=== PATIENT | female | born 1995 | race Caucasian/White ===

== ENCOUNTER 2018-03-27 03:55 | Inpatient (IN) | payer SELFPAY ==
[2018-03-27] MEDS ORDERED: Lidocaine 1% 50 ML MDV INJECT PRN (08:24)
[2018-03-27] MEDS ORDERED: Nalbuphine 10 MG/1 ML Vial IVPUSH PRN (08:24)
[2018-03-27] MEDS ORDERED: Butorphanol 1 MG/ML SDV IVPUSH PRN (08:24)
[2018-03-27] MEDS ORDERED: Misoprostol 200 MCG Tab PO PRN (08:24)
[2018-03-27] MEDS ORDERED: Tranexamic Acid 1,000 MG in Sodium Chloride 0.9% 100 ML IV PRN (08:24)
[2018-03-27] MEDS ORDERED: Methylergonovine 0.2 MG/1 ML Amp IM PRN (08:24)
[2018-03-27] MEDS ORDERED: Sodium Chloride 0.9% 2.5 ML Syringe FLUSH PRN (08:24)
[2018-03-27] MEDS ORDERED: Sodium Chloride 0.9% 10 ML Syringe FLUSH PRN (08:24)
[2018-03-27] MEDS ORDERED: Water For Irrigation,Sterile 1,000 ML Container IRR PRN (08:24)
[2018-03-27] MEDS ORDERED: Carboprost Tromethamine 250 MCG/1 ML Amp IM PRN (08:24)
[2018-03-27] MEDS ORDERED: Lactated Ringers 1,000 ML IV SCH (08:30)
[2018-03-27] MEDS ORDERED: Oxytocin/0.9 % Sodium Chloride 30 UNIT/500 ML BAG IV SCH (08:30)
--- NOTE | 2018-03-27 09:41 | PCM.LDHP ---
L&D History of Present Illness - General Date of Service: 03/27/18 Admit Problem/Dx: Patient Status Order with Admit Dx/Problem 03/27/18 04:07 Patient Status [ADT] Routine 03/27/18 08:24 Patient Status [ADT] Routine Admission Diagnosis/Problem Admission Diagnosis/Problem 03/27/18 09:35 22 yo due 03/19/18, 41 1/7 weeks, A+, Rubella Immune, GBS negative, admit for labor Source of Information: Patient History Limitations: Reports: No Limitations - History of Present Illness Timing/Duration: Reports: minutes: Location, : Reports: Abdomen Quality: Reports: Sharp, Stabbing Severity: Severe Improves with: Reports: None Worsens with: Reports: None Associated Symptoms: Reports: N - Related Data Allergies/Adverse Reactions: Allergies Allergy/AdvReac Type Severity Reaction Status Date / Time No Known Allergies Allergy Verified 03/27/18 08:23 Past Medical History [employer] History: Reports: Spontaneous - Past Surgical History HEENT Surgical History: Reports: Other (See Below) Other HEENT Surgeries/Procedures: tubes placed at 6 years old Social & Family History - Family History Family Medical History: Noncontributory H&P Review of Systems - Review of Systems: Review Of Systems: See Below General: Reports: No Symptoms HEENT: Reports: No Symptoms Pulmonary: Reports: No Symptoms Cardiovascular: Reports: No Symptoms Gastrointestinal: Reports: No Symptoms Genitourinary: Reports: No Symptoms Musculoskeletal: Reports: No Symptoms Skin: Reports: No Symptoms Psychiatric: Reports: No Symptoms Neurological: Reports: No Symptoms Hematologic/Lymphatic: Reports: No Symptoms Immunologic: Reports: No Symptoms L&D Exam - Exam Exam: See Below - Vital Signs Weight: 74.389 kg - OB Specific Contraction Intensity: Strong Movement: Active Heart Tones: Present Presentation: Vertex - Valiente Score Valiente Score Cervix Position: Midposition Valiente Score Consistency: Soft [place] Score Effacement: >80% [place] Score Dilation: > 5 cm [place] Score Infant's Station: -2 [place] Score Total: 10 - Exam General: Alert, Oriented, Cooperative HEENT: Hearing Intact Lungs: Normal Respiratory Effort Rectal Exam: Deferred Genitourinary: Deferred, Cervical dilitation Back Exam: Full Range of Motion Extremities: Normal Range of Motion Skin: Warm, Dry, Intact Neurological: Cranial Nerves Intact, Reflexes Equal Bilateral, Strength Equal Bilateral, Normal Gait, Normal Speech, Normal Tone, Sensation Intact Psychiatric: Alert, Normal Affect, Normal Mood - Patient Data Lab Results Last 24 hrs: Laboratory Results - last 24 hr 03/27/18 Range/Units 08:45 WBC 11.71 H (4.0-11.0) K/uL RBC 4.37 (4.30-5.90) M/uL Hgb 12.5 (12.0-16.0) g/dL Hct 36.2 (36.0-46.0) % MCV 82.8 (80.0-98.0) fL MCH 28.6 (27.0-32.0) pg MCHC 34.5 (31.0-37.0) g/dL RDW Std Deviation 39.3 (28.0-62.0) fl RDW Coeff of [place] 13 (11.0-15.0) % Plt Count 229 (150-400) K/uL MPV 11.40 (7.40-12.00) fL Nucleated RBC % 0.0 /100WBC Nucleated RBCs # 0 K/uL Result Diagrams: 03/27/18 08:45 - Problem List (1) Supervision of normal IUP (intrauterine ) in primigravida SNOMED Code(s): 96042033, 612187539, 943824580, 570744150 ICD Code: Z34.00 - ENCNTR FOR SUPRVSN OF NORMAL FIRST , UNSP TRIMESTER Status: Acute Priority: High Current Visit: Yes Qualifiers: Trimester: third trimester Qualified Code(s): Z34.03 - Encounter for supervision of normal first , third trimester Problem List Initiated/Reviewed/Updated: Yes Orders Last 24hrs: Active Orders 24 hr Category Date Time Status Patient Status [ADT] Routine ADT 03/27/18 08:24 Active Heart Tones [RC] CONTINUOUS Care 03/27/18 08:24 Active Non Stress Test [RC] PER UNIT ROUTINE Care 03/27/18 04:07 Active Non Stress Test [RC] PER UNIT ROUTINE Care 03/27/18 08:24 Active May Shower [RC] ASDIRECTED Care 03/27/18 08:24 Active Notify Provider [RC] PRN Care 03/27/18 08:24 Active Up ad Ashley [RC] ASDIRECTED Care 03/27/18 04:07 Active Up ad Ashley [RC] ASDIRECTED Care 03/27/18 08:24 Active Vaginal Exam [RC] Click to Edit Care 03/27/18 04:07 Active Vaginal Exam [RC] PRN Care 03/27/18 08:24 Active Vital Signs [RC] PER UNIT ROUTINE Care 03/27/18 04:07 Active Vital Signs [RC] PER UNIT ROUTINE Care 03/27/18 08:24 Active Regular Diet [DIET] Diet 03/27/18 Breakfast Active TYPE AND SCREEN [BBK] Routine Lab 03/27/18 08:45 Received Butorphanol [Stadol] Med 03/27/18 08:24 Active 1 mg IVPUSH Q1H PRN Carboprost Tromethamine [Hemabate DS] Med 03/27/18 08:24 Active 250 mcg IM ASDIRECTED PRN Lactated Ringers [Ringers, Lactated] 1,000 ml Med 03/27/18 08:30 Active IV ASDIRECTED Lidocaine 1% [Xylocaine 1%] Med 03/27/18 08:24 Active 50 ml INJECT ONETIME PRN Methylergonovine [Methergine] Med 03/27/18 08:24 Active 0.2 mg IM ASDIRECTED PRN Nalbuphine [Nubain] Med 03/27/18 08:24 Active 10 mg IVPUSH Q1H PRN Oxytocin/0.9 % Sodium Chloride [Oxytocin 30 Unit/500 ML Med 03/27/18 08:30 Active -NS] 30 unit in 500 ml IV .ONCE Sodium Chloride 0.9% [Saline Flush] Med 03/27/18 08:24 Active 10 ml FLUSH ASDIRECTED PRN Sodium Chloride 0.9% [Saline Flush] Med 03/27/18 08:24 Active 2.5 ml FLUSH ASDIRECTED PRN Tranexamic Acid [Cyklokapron] 1,000 mg Med 03/27/18 08:24 Active Sodium Chloride 0.9% [Normal Saline] 100 ml IV ONETIME Water For Irrigation,Sterile [Sterile Water for Med 03/27/18 08:24 Active Irrigation] 1,000 ml IRR ASDIRECTED PRN miSOPROStol [Cytotec] Med 03/27/18 08:24 Active 200 mcg PO ONETIME PRN Scalp Electrode [WOMSER] Per Unit Routine Oth 03/27/18 08:24 Ordered Peripheral IV Insertion Adult [OM.PC] Routine Oth 03/27/18 08:24 Ordered Resuscitation Status Routine Resus Stat 03/27/18 08:24 Ordered Medication Orders Butorphanol Tartrate (Stadol) 1 mg IVPUSH Q1H PRN PRN Reason: Pain Carboprost Tromethamine (Hemabate Ds) 250 mcg IM ASDIRECTED PRN PRN Reason: Post Hemorrhage Tranexamic Acid 1,000 mg/ (Sodium Chloride) 110 mls @ 660 mls/hr IV ONETIME PRN PRN Reason: Bleeding Lactated Ringer's (Ringers, Lactated) 1,000 mls @ 150 mls/hr IV ASDIRECTED MAX Oxytocin/Sodium Chloride (Oxytocin 30 Unit/500 Ml-Ns) 30 unit in 500 mls @ 500 mls/hr IV .ONCE MAX Lidocaine HCl (Xylocaine 1%) 50 ml INJECT ONETIME PRN PRN Reason: Laceration repair Methylergonovine Maleate (Methergine) 0.2 mg IM ASDIRECTED PRN PRN Reason: Post Hemorrhage Misoprostol (Cytotec) 200 mcg PO ONETIME PRN PRN Reason: Post Hemorrhage Nalbuphine HCl (Nubain) 10 mg IVPUSH Q1H PRN PRN Reason: Pain (severe 7-10) Sodium Chloride (Saline Flush) 10 ml FLUSH ASDIRECTED PRN PRN Reason: Keep Vein Open Sodium Chloride (Saline Flush) 2.5 ml FLUSH ASDIRECTED PRN PRN Reason: Keep Vein Open Sterile Water (Sterile Water For Irrigation) 1,000 ml IRR ASDIRECTED PRN PRN Reason: delivery Assessment/Plan Comment:: Labor: A: 22 yo due 03/19/18, 41 1/7 weeks, A+, Rubella Immune, GBS negative, admit for labor P: Admit, limited interventions per patient, anticipate ASPEN, Dr. Menezes updated
[2018-03-27] MEDS ORDERED: Witch Hazel Medicated Pads 40/Jar TOP PRN (18:32)
[2018-03-27] MEDS ORDERED: oxyCODONE 5 MG Tab PO PRN (18:32)
[2018-03-27] MEDS ORDERED: Docusate Sodium 100 MG Cap PO PRN (18:32)
[2018-03-27] MEDS ORDERED: Acetaminophen 500 MG Tab PO PRN ×2 (18:32)
[2018-03-27] MEDS ORDERED: Ibuprofen 800 MG Tab PO PRN (18:32)
[2018-03-27] MEDS ORDERED: Bisacodyl 10 MG Supp RECTAL PRN (18:32)
[2018-03-27] MEDS ORDERED: Benzocaine/Menthol 20%-0.5% Spray 78 GM Cannister TOP PRN (18:32)
[2018-03-27] MEDS ORDERED: Ibuprofen 400 MG Tab PO PRN (18:32)
[2018-03-27] MEDS ORDERED: Lanolin 100% Cream 7 GM Tube TOP PRN (18:32)
[2018-03-27] MEDS ORDERED: Lidocaine 5% Oint 35.44 GM Tube TOP PRN (18:36)
--- NOTE | 2018-03-27 18:47 | PCM.DEL ---
L & D Note - General Info Date of Service: 03/27/18 Mother's Due Date: 03/19/18 - Delivery Note Labor: Spontaneous Delivery Outcome: Livebirth Infant Delivery Method: Spontaneous Vaginal Delivery-Single Delivery Mode: Spontaneous Presentation: Vertex Nuchal Cord: Present Anesthesia Type: None Amniotic Fluid Description: Clear Episiotomy Type: None Laceration: None Placenta: Intact, Spontaneous Cord: 3 Vessels Estimated Blood Loss: 150 Resuscitation Needed: No Score 1 min: 9 Score 5 min: 9 Second Stage Interventions: Reports: Pushing, Pulls Own Legs Back Delivery Comments (Free Text/Narrative):: with great pushing, head delivered and nuchal x1 reduced over head, shoulders and body followed easily. Infant with spont cry placed on mothers abdomen with RN at for evaluation. Delayed cord clamping. Pitocin to IVF. Cord clamped x2 and cut by FOB. Cord blood collected. Placenta delivered grossly intact. Inspection noted intact perineum. EBL 150cc, APGARS 9/9 Wt: 7lb 14oz. Mother and baby left in stable condition for recovery. - General Info Date of Service: 03/27/18 Admission Dx/Problem (Free Text): Patient Status Order with Admit Dx/Problem 03/27/18 04:07 Patient Status [ADT] Routine 03/27/18 08:24 Patient Status [ADT] Routine Admission Diagnosis/Problem Admission Diagnosis/Problem 03/27/18 09:35 22 yo due 03/19/18, 41 1/7 weeks, A+, Rubella Immune, GBS negative, admit for labor Functional Status: Reports: Pain Controlled - Review of Systems General: Reports: No Symptoms HEENT: Reports: No Symptoms Pulmonary: Reports: No Symptoms Cardiovascular: Reports: No Symptoms Gastrointestinal: Reports: No Symptoms Genitourinary: Reports: No Symptoms Musculoskeletal: Reports: No Symptoms Skin: Reports: No Symptoms Neurological: Reports: No Symptoms Psychiatric: Reports: No Symptoms - Patient Data Weight - Most Recent: 74.389 kg Lab Results Last 24 Hours: Laboratory Results - last 24 hr 03/27/18 03/27/18 Range/Units 08:45 08:45 WBC 11.71 H (4.0-11.0) K/uL RBC 4.37 (4.30-5.90) M/uL Hgb 12.5 (12.0-16.0) g/dL Hct 36.2 (36.0-46.0) % MCV 82.8 (80.0-98.0) fL MCH 28.6 (27.0-32.0) pg MCHC 34.5 (31.0-37.0) g/dL RDW Std Deviation 39.3 (28.0-62.0) fl RDW Coeff of [place] 13 (11.0-15.0) % Plt Count 229 (150-400) K/uL MPV 11.40 (7.40-12.00) fL Nucleated RBC % 0.0 /100WBC Nucleated RBCs # 0 K/uL Blood Type A POSITIVE Antibody Screen NEGATIVE Med Orders - Current: Current Medications Acetaminophen (Tylenol Extra Strength) 500 mg PO Q4H PRN PRN Reason: Pain Acetaminophen (Tylenol Extra Strength) 1,000 mg PO Q4H PRN PRN Reason: Pain Benzocaine/Menthol (Dermoplast Pain Relief 20%-0.5% [place]) 78 gm TOP ASDIRECTED PRN PRN Reason: Perineal Comfort Measure Bisacodyl (Dulcolax) 10 mg RECTAL ONETIME PRN PRN Reason: Constipation Docusate Sodium (Colace) 100 mg PO BID PRN PRN Reason: Constipation Emollient Ointment (Lansinoh Hpa) 0 gm TOP ASDIRECTED PRN PRN Reason: Sore Nipples Ibuprofen (Motrin) 400 mg PO Q4H PRN PRN Reason: Pain Ibuprofen (Motrin) 800 mg PO Q6H PRN PRN Reason: Pain Oxycodone HCl (Oxycodone) 5 mg PO Q2H PRN PRN Reason: Pain [place] (Tucks) 1 pad TOP ASDIRECTED PRN PRN Reason: comfort care Discontinued Medications Butorphanol Tartrate (Stadol) 1 mg IVPUSH Q1H PRN PRN Reason: Pain Carboprost Tromethamine (Hemabate Ds) 250 mcg IM ASDIRECTED PRN PRN Reason: Post Hemorrhage Tranexamic Acid 1,000 mg/ (Sodium Chloride) 110 mls @ 660 mls/hr IV ONETIME PRN PRN Reason: Bleeding Lactated Ringer's (Ringers, Lactated) 1,000 mls @ 150 mls/hr IV ASDIRECTED MAX Oxytocin/Sodium Chloride (Oxytocin 30 Unit/500 Ml-Ns) 30 unit in 500 mls @ 500 mls/hr IV .ONCE MAX Lidocaine HCl (Xylocaine 1%) 50 ml INJECT ONETIME PRN PRN Reason: Laceration repair Methylergonovine Maleate (Methergine) 0.2 mg IM ASDIRECTED PRN PRN Reason: Post Hemorrhage Misoprostol (Cytotec) 200 mcg PO ONETIME PRN PRN Reason: Post Hemorrhage Nalbuphine HCl (Nubain) 10 mg IVPUSH Q1H PRN PRN Reason: Pain (severe 7-10) Sodium Chloride (Saline Flush) 10 ml FLUSH ASDIRECTED PRN PRN Reason: Keep Vein Open Sodium Chloride (Saline Flush) 2.5 ml FLUSH ASDIRECTED PRN PRN Reason: Keep Vein Open Sterile Water (Sterile Water For Irrigation) 1,000 ml IRR ASDIRECTED PRN PRN Reason: delivery - Exam General: Alert, Oriented, Cooperative, No Acute Distress Lungs: Normal Respiratory Effort GI/Abdominal Exam: Soft, Non-Tender (Female) Exam: Normal External Exam, Vaginal Bleeding Back Exam: Normal Inspection, Full Range of Motion Extremities: Normal Inspection, Normal Range of Motion, Non-Tender, No Pedal Edema, Normal Capillary Refill Skin: Warm, Dry, Intact Neurological: No New Focal Deficit, Normal Gait, Normal Speech, Normal Tone, Strength Equal Bilateral Psy/Mental Status: Alert, Normal Affect, Normal Mood - Problem List & Annotations (1) (normal spontaneous vaginal delivery) SNOMED Code(s): 45134949 Code(s): O80 - ENCOUNTER FOR FULL-TERM UNCOMPLICATED DELIVERY Status: Acute Priority: High Current Visit: Yes (2) Supervision of normal IUP (intrauterine ) in primigravida SNOMED Code(s): 88544408, 142354954, 037274457, 602407757 Code(s): Z34.00 - ENCNTR FOR SUPRVSN OF NORMAL FIRST , UNSP TRIMESTER Status: Acute Priority: High Current Visit: Yes Qualifiers: Trimester: third trimester Qualified Code(s): Z34.03 - Encounter for supervision of normal first , third trimester - Problem List Review Problem List Initiated/Reviewed/Updated: Yes - My Orders Last 24 Hours: My Active Orders 03/27/18 18:32 May Shower [RC] ASDIRECTED Up ad Ashley [RC] ASDIRECTED Vital Signs [RC] PER UNIT ROUTINE Acetaminophen [Tylenol Extra Strength] 1,000 mg PO Q4H PRN Acetaminophen [Tylenol Extra Strength] 500 mg PO Q4H PRN Benzocaine/Menthol [Dermoplast Pain Relief 20%-0.5% [place]] 78 gm TOP ASDIRECTED PRN Bisacodyl [Dulcolax] 10 mg RECTAL ONETIME PRN Docusate Sodium [Colace] 100 mg PO BID PRN Ibuprofen [Motrin] 400 mg PO Q4H PRN Ibuprofen [Motrin] 800 mg PO Q6H PRN Lanolin [Lansinoh HPA] See Dose Instructions TOP ASDIRECTED PRN [place] [Tucks] 1 pad TOP ASDIRECTED PRN oxyCODONE 5 mg PO Q2H PRN Assess Lochia [WOMSER] Per Unit Routine Assess Uterine Involution [WOMSER] Per Unit Routine Peripheral IV Discontinue [OM.PC] Routine Resuscitation Status Routine 03/27/18 18:33 Patient Status [ADT] Routine 03/27/18 18:36 Lidocaine 5% 0.5 gm TOP ONETIME PRN 03/28/18 Breakfast Regular Diet [DIET] - Plan Plan:: Labor: A: 22 yo due 03/19/18, 41 1/7 weeks, A+, Rubella Immune, GBS negative, admit for labor P: Admit, limited interventions per patient, anticipate , Dr. Menezes updated Delivery A: male, APGARS 9/9, Wt: 7lb 14oz, EBL 150cc, Intact. Stable P: Routine pp plan of care
--- NOTE | 2018-03-28 09:42 | PCM.DCSUM1 ---
Discharge Summary - Hospital Course Free Text/Narrative:: Discharge home with infant, follow up 6 weeks for or sooner if needed Diagnosis: Stroke: No - Discharge Data Discharge Date: 03/28/18 Discharge Disposition: Home, Self-Care 01 Condition: Good - Discharge Diagnosis/Problem(s) (1) Supervision of normal IUP (intrauterine ) in primigravida SNOMED Code(s): 12968799, 077059532, 178797715, 564130302 ICD Code: Z34.00 - ENCNTR FOR SUPRVSN OF NORMAL FIRST , UNSP TRIMESTER Status: Acute Priority: High Current Visit: Yes Qualifiers: Trimester: third trimester Qualified Code(s): Z34.03 - Encounter for supervision of normal first , third trimester (2) (normal spontaneous vaginal delivery) SNOMED Code(s): 40206403 ICD Code: O80 - ENCOUNTER FOR FULL-TERM UNCOMPLICATED DELIVERY Status: Acute Priority: High Current Visit: Yes - Patient Instructions Diet: Usual Diet as Tolerated Activity: As Tolerated, No Strenuous Activities, Rest and Relax Today Driving: May Drive Today Showering/Bathing: May Shower Notify Provider of: Fever, Increased Pain, Swelling and Redness, Nausea and/or Vomiting Other/Special Instructions: Discharge home with infant, follow up 6 weeks for or sooner if needed - Discharge Plan *PRESCRIPTION DRUG MONITORING PROGRAM REVIEWED*: Not Applicable *COPY OF PRESCRIPTION DRUG MONITORING REPORT IN PATIENT IVETT: Not Applicable Oxygen Therapy Mode: Room Air Referrals: [facility] [Outside] Agata Auguste CNM [Mid-] - 05/08/18 8:30 am - Discharge Summary/Plan Comment DC Time >30 min.: Yes - General Info Date of Service: 03/28/18 Functional Status: Reports: Pain Controlled, Tolerating Diet, Ambulating, Urinating - Review of Systems General: Reports: No Symptoms HEENT: Reports: No Symptoms Pulmonary: Reports: No Symptoms Cardiovascular: Reports: No Symptoms Gastrointestinal: Reports: No Symptoms Genitourinary: Reports: No Symptoms Musculoskeletal: Reports: No Symptoms Skin: Reports: No Symptoms Neurological: Reports: No Symptoms Psychiatric: Reports: No Symptoms - Patient Data Vitals - Most Recent: Last Vital Signs Temp Pulse 73 03/28/18 03:50 Resp 16 03/28/18 03:50 BP 121/69 03/28/18 03:50 Pulse Ox 97 03/28/18 03:50 Weight - Most Recent: 74.389 kg Lab Results - Last 24 hrs: Laboratory Results - last 24 hr 03/27/18 Range/Units 08:45 Blood Type A POSITIVE Antibody Screen NEGATIVE Med Orders - Current: Current Medications Acetaminophen (Tylenol Extra Strength) 500 mg PO Q4H PRN PRN Reason: Pain Acetaminophen (Tylenol Extra Strength) 1,000 mg PO Q4H PRN PRN Reason: Pain Benzocaine/Menthol (Dermoplast Pain Relief 20%-0.5% [place]) 78 gm TOP ASDIRECTED PRN PRN Reason: Perineal Comfort Measure Last Admin: 03/27/18 19:30 Dose: 1 can Bisacodyl (Dulcolax) 10 mg RECTAL ONETIME PRN PRN Reason: Constipation Docusate Sodium (Colace) 100 mg PO BID PRN PRN Reason: Constipation Emollient Ointment (Lansinoh Hpa) 0 gm TOP ASDIRECTED PRN PRN Reason: Sore Nipples Last Admin: 03/27/18 19:35 Dose: 2 tube Ibuprofen (Motrin) 400 mg PO Q4H PRN PRN Reason: Pain Ibuprofen (Motrin) 800 mg PO Q6H PRN PRN Reason: Pain Last Admin: 03/28/18 04:02 Dose: 800 mg Lidocaine HCl (Lidocaine 5%) 0 gm TOP ONETIME PRN PRN Reason: Pain Oxycodone HCl (Oxycodone) 5 mg PO Q2H PRN PRN Reason: Pain [place] (Tucks) 1 pad TOP ASDIRECTED PRN PRN Reason: comfort care Discontinued Medications Butorphanol Tartrate (Stadol) 1 mg IVPUSH Q1H PRN PRN Reason: Pain Carboprost Tromethamine (Hemabate Ds) 250 mcg IM ASDIRECTED PRN PRN Reason: Post Hemorrhage Tranexamic Acid 1,000 mg/ (Sodium Chloride) 110 mls @ 660 mls/hr IV ONETIME PRN PRN Reason: Bleeding Lactated Ringer's (Ringers, Lactated) 1,000 mls @ 150 mls/hr IV ASDIRECTED MAX Oxytocin/Sodium Chloride (Oxytocin 30 Unit/500 Ml-Ns) 30 unit in 500 mls @ 500 mls/hr IV .ONCE MAX Last Admin: 03/27/18 18:16 Dose: 500 mls/hr Lidocaine HCl (Xylocaine 1%) 50 ml INJECT ONETIME PRN PRN Reason: Laceration repair Methylergonovine Maleate (Methergine) 0.2 mg IM ASDIRECTED PRN PRN Reason: Post Hemorrhage Misoprostol (Cytotec) 200 mcg PO ONETIME PRN PRN Reason: Post Hemorrhage Nalbuphine HCl (Nubain) 10 mg IVPUSH Q1H PRN PRN Reason: Pain (severe 7-10) Sodium Chloride (Saline Flush) 10 ml FLUSH ASDIRECTED PRN PRN Reason: Keep Vein Open Sodium Chloride (Saline Flush) 2.5 ml FLUSH ASDIRECTED PRN PRN Reason: Keep Vein Open Sterile Water (Sterile Water For Irrigation) 1,000 ml IRR ASDIRECTED PRN PRN Reason: delivery - Exam General: Reports: Alert, Oriented, Cooperative, No Acute Distress Neck: Reports: Supple, Trachea Midline Lungs: Reports: Clear to Auscultation, Normal Respiratory Effort Cardiovascular: Reports: Regular Rate, Regular Rhythm GI/Abdominal Exam: Normal Bowel Sounds, Soft (Female) Exam: Deferred, Vaginal Bleeding Rectal (Female) Exam: Deferred Back Exam: Reports: Full Range of Motion. Denies: CVA Tenderness (L), CVA Tenderness (R) Extremities: Normal Range of Motion Skin: Reports: Warm, Dry, Intact Neurological: Reports: No New Focal Deficit, Normal Gait, Normal Speech, Normal Tone, Strength Equal Bilateral Psy/Mental Status: Reports: Alert, Normal Affect, Normal Mood
--- NOTE | 2018-03-28 13:23 | PCM.PNPP ---
- General Info Date of Service: 03/28/18 Admission Dx/Problem (Free Text): Patient Status Order with Admit Dx/Problem 03/27/18 04:07 Patient Status [ADT] Routine 03/27/18 08:24 Patient Status [ADT] Routine Admission Diagnosis/Problem Admission Diagnosis/Problem 03/27/18 09:35 22 yo due 03/19/18, 41 1/7 weeks, A+, Rubella Immune, GBS negative, admit for labor Functional Status: Reports: Pain Controlled, Tolerating Diet, Ambulating, Urinating - Review of Systems General: Reports: No Symptoms HEENT: Reports: No Symptoms Pulmonary: Reports: No Symptoms Cardiovascular: Reports: No Symptoms Gastrointestinal: Reports: No Symptoms Genitourinary: Reports: No Symptoms Musculoskeletal: Reports: No Symptoms Skin: Reports: No Symptoms Neurological: Reports: No Symptoms Psychiatric: Reports: No Symptoms - General Info Date of Service: 03/28/18 - Patient Data Vital Signs - Most Recent: Last Vital Signs Temp 36.4 C 03/28/18 09:00 Pulse 81 03/28/18 09:00 Resp 16 03/28/18 09:00 BP 103/68 03/28/18 09:00 Pulse Ox 97 03/28/18 03:50 Weight - Most Recent: 74.389 kg Med Orders - Current: Current Medications Acetaminophen (Tylenol Extra Strength) 500 mg PO Q4H PRN PRN Reason: Pain Acetaminophen (Tylenol Extra Strength) 1,000 mg PO Q4H PRN PRN Reason: Pain Benzocaine/Menthol (Dermoplast Pain Relief 20%-0.5% [place]) 78 gm TOP ASDIRECTED PRN PRN Reason: Perineal Comfort Measure Last Admin: 03/27/18 19:30 Dose: 1 can Bisacodyl (Dulcolax) 10 mg RECTAL ONETIME PRN PRN Reason: Constipation Docusate Sodium (Colace) 100 mg PO BID PRN PRN Reason: Constipation Last Admin: 03/28/18 12:26 Dose: 100 mg Emollient Ointment (Lansinoh Hpa) 0 gm TOP ASDIRECTED PRN PRN Reason: Sore Nipples Last Admin: 03/27/18 19:35 Dose: 2 tube Ibuprofen (Motrin) 400 mg PO Q4H PRN PRN Reason: Pain Ibuprofen (Motrin) 800 mg PO Q6H PRN PRN Reason: Pain Last Admin: 03/28/18 04:02 Dose: 800 mg Lidocaine HCl (Lidocaine 5%) 0 gm TOP ONETIME PRN PRN Reason: Pain Oxycodone HCl (Oxycodone) 5 mg PO Q2H PRN PRN Reason: Pain [place] (Tucks) 1 pad TOP ASDIRECTED PRN PRN Reason: comfort care Discontinued Medications Butorphanol Tartrate (Stadol) 1 mg IVPUSH Q1H PRN PRN Reason: Pain Carboprost Tromethamine (Hemabate Ds) 250 mcg IM ASDIRECTED PRN PRN Reason: Post Hemorrhage Tranexamic Acid 1,000 mg/ (Sodium Chloride) 110 mls @ 660 mls/hr IV ONETIME PRN PRN Reason: Bleeding Lactated Ringer's (Ringers, Lactated) 1,000 mls @ 150 mls/hr IV ASDIRECTED MAX Oxytocin/Sodium Chloride (Oxytocin 30 Unit/500 Ml-Ns) 30 unit in 500 mls @ 500 mls/hr IV .ONCE MAX Last Admin: 03/27/18 18:16 Dose: 500 mls/hr Lidocaine HCl (Xylocaine 1%) 50 ml INJECT ONETIME PRN PRN Reason: Laceration repair Methylergonovine Maleate (Methergine) 0.2 mg IM ASDIRECTED PRN PRN Reason: Post Hemorrhage Misoprostol (Cytotec) 200 mcg PO ONETIME PRN PRN Reason: Post Hemorrhage Nalbuphine HCl (Nubain) 10 mg IVPUSH Q1H PRN PRN Reason: Pain (severe 7-10) Sodium Chloride (Saline Flush) 10 ml FLUSH ASDIRECTED PRN PRN Reason: Keep Vein Open Sodium Chloride (Saline Flush) 2.5 ml FLUSH ASDIRECTED PRN PRN Reason: Keep Vein Open Sterile Water (Sterile Water For Irrigation) 1,000 ml IRR ASDIRECTED PRN PRN Reason: delivery - Interaction Infant Disposition, : in Room with Family Infant Interaction: Holding Infant Feeding: Breastfed ; Nursed Well Support Person: , Mother - Recovery Exam Fundal Tone: Firm Fundal Level: 2 Fingerbreadths Below Umbilicus Fundal Placement: Midline Lochia Amount: Scant Lochia Color: Rubra/Red Bladder Status: Voiding Urinary Elimination: Voided - Exam General: Alert, Oriented, Cooperative, No Acute Distress Neck: Supple, Trachea Midline Lungs: Clear to Auscultation, Normal Respiratory Effort Cardiovascular: Regular Rate, Regular Rhythm GI/Abdominal Exam: Normal Bowel Sounds, Soft, Non-Tender Extremities: Normal Range of Motion Skin: Warm, Dry, Intact Psy/Mental Status: Alert, Normal Affect, Normal Mood - Problem List & Annotations (1) Supervision of normal IUP (intrauterine ) in primigravida SNOMED Code(s): 28673813, 565104635, 830214333, 989866460 Code(s): Z34.00 - ENCNTR FOR SUPRVSN OF NORMAL FIRST , UNSP TRIMESTER Status: Acute Priority: High Current Visit: Yes Qualifiers: Qualified Code(s): Z34.03 - Encounter for supervision of normal first , third trimester (2) (normal spontaneous vaginal delivery) SNOMED Code(s): 95644318 Code(s): O80 - ENCOUNTER FOR FULL-TERM UNCOMPLICATED DELIVERY Status: Acute Priority: High Current Visit: Yes - Problem List Review Problem List Initiated/Reviewed/Updated: Yes - My Orders Last 24 Hours: My Active Orders 03/28/18 09:43 Ready for Discharge [RC] PER UNIT ROUTINE - Plan Plan:: Labor: A: 22 yo due 03/19/18, 41 1/7 weeks, A+, Rubella Immune, GBS negative, admit for labor P: Admit, limited interventions per patient, anticipate , Dr. Menezes updated Delivery A: male, APGARS 9/9, Wt: 7lb 14oz, EBL 150cc, Intact. Stable P: Routine pp plan of care
== END 2018-03-28 18:15 | disposition home or self-care (01) | DRG 807 ==
LOC: MW.OBCHECK 03:55 → MW.OB 03:57 → MW.OBCHECK 04:07 → MW.OB 04:07 → OBSVTOIN 18:12 → MW.OB 03-28 04:00
PROVIDERS: ADMIT Obstetrics & Gynecology; ATTEND Obstetrics & Gynecology
PROC: 6A550ZT Pheresis of Cord Blood Stem Cells, Single (ICD-10-PCS; principal; 2018-03-27)
PROC: 10E0XZZ Delivery of Products of Conception, External Approach (ICD-10-PCS; principal; 2018-03-27)
DX: O48.0 Post-term pregnancy (principal); Z37.0 Single live birth; Z3A.41 41 weeks gestation of pregnancy; O69.81X0 Labor and delivery complicated by cord around neck, without compression, not applicable or unspecified
CPT/HCPCS: 36415; 59025; 59409; 85027; 86850; 86900; 86901; A9270-GY; J2590

== ENCOUNTER 2022-10-03 04:33 | Inpatient (IN) | payer SELFPAY ==
[2022-10-03] MEDS ORDERED: Misoprostol 200 MCG Tab PO PRN (04:50)
[2022-10-03] MEDS ORDERED: Sodium Chloride 0.9% 2.5 ML Syringe FLUSH PRN (04:50)
[2022-10-03] MEDS ORDERED: Lidocaine 1% 50 ML MDV INJECT PRN (04:50)
[2022-10-03] MEDS ORDERED: Ondansetron 4 MG/2 ML SDV IVPUSH PRN ×3 (04:50→06:58)
[2022-10-03] MEDS ORDERED: Sodium Chloride 0.9% 10 ML Syringe FLUSH PRN (04:50)
[2022-10-03] MEDS ORDERED: Methylergonovine 0.2 MG/1 ML Amp IM PRN ×2 (04:50→06:41)
[2022-10-03] MEDS ORDERED: Sodium Chloride 0.9% 20 ML SDV IV PRN (04:50)
[2022-10-03] MEDS ORDERED: Ampicillin 2 GM in Sodium Chloride 0.9% 100 ML IV ONE (04:50)
[2022-10-03] MEDS ORDERED: Butorphanol 1 MG/ML SDV IVPUSH PRN (04:50)
[2022-10-03] MEDS ORDERED: Carboprost Tromethamine 250 MCG/1 mL Vial IM PRN (04:50)
[2022-10-03] MEDS ORDERED: Water For Irrigation,Sterile 1,000 ML Container IRR PRN (04:50)
[2022-10-03] MEDS ORDERED: Tranexamic Acid IN NACL,ISO-OS 1,000 MG in Premix Bag 1 BAG IV PRN ×4 (04:50→06:41)
[2022-10-03] MEDS ORDERED: Lactated Ringers 1,000 ML IV SCH ×2 (05:00→06:45)
[2022-10-03] MEDS ORDERED: Oxytocin/0.9 % Sodium Chloride 30 UNIT/500 ML BAG IV SCH ×2 (05:00→06:45)
[2022-10-03] MEDS ORDERED: Oxytocin 10 Units/1 ML SDV ONE (05:20)
[2022-10-03] MEDS ORDERED: Ropivacaine 0.5% 5 MG/ML 30 ML SDV ONE (05:20)
[2022-10-03] MEDS ORDERED: fentaNYL 100 MCG/2 ML SDV ONE (05:20)
[2022-10-03] MEDS ORDERED: Ondansetron 4 MG/2 ML SDV ONE (05:20)
[2022-10-03] MEDS ORDERED: Dexamethasone 4 MG/ML 5 ML MDV ONE (05:20)
[2022-10-03] MEDS ORDERED: Ketorolac 30 MG/ML SDV ONE (05:20)
[2022-10-03] MEDS ORDERED: ceFAZolin 1 GM Vial ONE (05:20)
[2022-10-03] MEDS ORDERED: Morphine PF 10 MG/10 ML SDV ONE (05:23)
[2022-10-03 05:27] LABS: HEMATOCRIT 34.4 % (36.0-46.0); HEMOGLOBIN 11.7 g/dL (12.0-16.0); MEAN CORPUSCULAR HEMOGLOBIN 28.1 pg (27.0-32.0); MEAN CORPUSCULAR VOLUME 82.5 fL (80.0-98.0); MEAN PLATELET VOLUME 10.6 fL (7.40-12.00); RED BLOOD CELL COUNT 4.17 M/uL (4.30-5.90); WHITE BLOOD CELL COUNT,WBC 9.35 K/uL (4.0-11.0)
[2022-10-03] MEDS ORDERED: Misoprostol 200 MCG Tab RECTAL PRN (06:41)
[2022-10-03] MEDS ORDERED: diphenhydrAMINE 50 MG/ML SDV IVPUSH PRN ×2 (06:41→06:58)
[2022-10-03] MEDS ORDERED: Acetaminophen/oxyCODONE 325-5 MG Tab PO PRN ×3 (06:41→06:58)
[2022-10-03] MEDS ORDERED: Oxytocin 10 Units/1 ML SDV IM PRN (06:41)
[2022-10-03] MEDS ORDERED: Bisacodyl 10 MG Supp RECTAL PRN (06:41)
[2022-10-03] MEDS ORDERED: Lanolin 100% Cream 7 GM Tube TOP PRN (06:41)
[2022-10-03 06:48] LABS: PH,UMBILICAL ARTERIAL 7.128 (7.18-7.38); PH,UMBILICAL VENOUS 7.197 (7.25-7.45)
[2022-10-03] MEDS ORDERED: fentaNYL 100 MCG/2 ML SDV IVPUSH PRN (06:58)
[2022-10-03] MEDS ORDERED: ePHEDrine 50 MG/ML SDV IVPUSH PRN (06:58)
[2022-10-03 07:30] LABS: HEMATOCRIT 32.7 % (36.0-46.0); MEAN CORPUSCULAR HGB CONC 33.6 g/dL (31.0-37.0); MEAN CORPUSCULAR VOLUME 83.2 fL (80.0-98.0); MEAN PLATELET VOLUME 10.6 fL (7.40-12.00); RED BLOOD CELL COUNT 3.93 M/uL (4.30-5.90); WHITE BLOOD CELL COUNT,WBC 12.42 K/uL (4.0-11.0)
[2022-10-03 07:52] LABS: ALANINE AMINOTRANSFERASE,ALT 16 IU/L (14-63); ALBUMIN 2.2 g/dL (3.4-5.0); ALKALINE PHOSPHATASE 102 U/L (46-116); ASPARTATE AMNIOTRANSFERASE,AST 14 IU/L (15-37); BILIRUBIN TOTAL 0.1 mg/dL (0.2-1.0); BLOOD UREA NITROGEN,BUN 7 mg/dL (7.0-18.0); CALCIUM 7.6 mg/dL (8.5-10.1); CHLORIDE,CL 104 mmol/L (98-107); CREATININE 0.7 mg/dL (0.6-1.0); GLUCOSE RANDOM 110 mg/dL (74-106); POTASSIUM,K 3.9 mmol/L (3.5-5.1); PROTEIN TOTAL,TP 5.6 g/dL (6.4-8.2); SODIUM,NA 137 mmol/L (136-145)
[2022-10-03 07:54] LABS: A/G RATIO 0.7 (0.9-1.6); ESTIMATED GFR 121 mL/min (>60)
[2022-10-03 08:23] LABS: INR 1.02 (0.86-1.11)
[2022-10-03] MEDS: Ketorolac 30 MG/ML SDV IVPUSH SCH ×2 (12:20→17:54)
[2022-10-03] MEDS: Ampicillin 1 GM in Sodium Chloride 0.9% 50 ML IV SCH ×2 (13:39→21:24)
[2022-10-03] MEDS: Docusate Sodium 100 MG Cap PO SCH ×2 (13:40→20:22)
[2022-10-04] MEDS: Ketorolac 30 MG/ML SDV IVPUSH SCH ×2 (00:07→05:31)
[2022-10-04 04:29] LABS: HEMATOCRIT 27.7 % (36.0-46.0); HEMOGLOBIN 9.2 g/dL (12.0-16.0)
[2022-10-04] MEDS ORDERED: Ibuprofen 800 MG Tab PO PRN (12:00)
== END 2022-10-04 09:44 | disposition home or self-care (01) | DRG 788 ==
LOC: UNDOADMOB 04:33 → MW.OB 04:33 → OBSVTOIN 05:34 → MW.OB 12:50
PROVIDERS: ADMIT Obstetrics & Gynecology; ATTEND Obstetrics & Gynecology
PROC: 10D00Z1 Extraction of Products of Conception, Low, Open Approach (ICD-10-PCS; principal; 2022-10-03)
DX: O45.93 Premature separation of placenta, unspecified, third trimester (principal); O48.0 Post-term pregnancy; O34.211 Maternal care for low transverse scar from previous cesarean delivery; O36.5930 Maternal care for other known or suspected poor fetal growth, third trimester, not applicable or unspecified; Z37.0 Single live birth; O77.0 Labor and delivery complicated by meconium in amniotic fluid; Z3A.40 40 weeks gestation of pregnancy
CPT/HCPCS: 01961; 36415; 76815; 76815-26; 80053; 82803; 82947; 85014; 85018; 85027; 85384; 85610; 85730; 86592; 86850; 86900; 86901; 86920; A9270-GY; J0690; J1100; J1885; J2274; J2405; J2590; J2795; J3010